=== PATIENT | female | born 1990 | race Hispanic/Latino ===

== ENCOUNTER 2020-04-25 11:44 | Inpatient (IN) | payer OTHER ==
[~2020-04-25] VITALS: Ht 162.6 cm; Wt 76.2 kg
[2020-04-25] MEDS ORDERED: MORPHINE SULFATE INJ 2 MG/ML SYR IV STA (14:58)
[2020-04-25] MEDS ORDERED: SODIUM CHLORIDE 0.9% 1000ML 1,000 ML IV STA (14:58)
[2020-04-25] MEDS ORDERED: ONDANSETRON HCL INJ 2MG/ML 2ML 2 MG/ML VIAL IV STA (14:58)
[2020-04-25 15:42] LABS: BASOPHILS % 0.3 % (0.0-1.0); EOSINOPHILS # (AUTO) 0.1 (0.0-0.4); EOSINOPHILS % 1.5 % (0.0-6.0); HEMATOCRIT 43.4 % (34.2-44.1); LYMPHOCYTES # (AUTO) 1.3 (1.0-3.2); LYMPHOCYTES % 22.5 % (18.0-39.1); MEAN CORPUSCULAR HEMOGLOBIN 28.7 pg (28-32); MEAN CORPUSCULAR HGB CONC 32.3 g/dL (31-35); MEAN CORPUSCULAR VOLUME 88.9 fL (81-99); MONOCYTES # (AUTO) 0.5 (0.2-0.8); MONOCYTES % 8.2 % (4.4-11.3); NEUTROPHILS % 67.3 % (38.7-80.0); PLATELET COUNT 278 x10e3/uL (140-360); RED BLOOD COUNT 4.88 x10e6/uL (3.6-5.1); RED CELL DISTRIBUTION WIDTH 12.3 % (11.7-14.4)
[2020-04-25 16:01] LABS: ALANINE AMINOTRANSFERASE 14 IU/L (0-55); ALBUMIN 4.5 g/dL (3.5-5.0); ALBUMIN/GLOBULIN RATIO 1.3 (0.8-2.0); ALKALINE PHOSPHATASE 84 IU/L (40-150); ANION GAP 14.8 mmol/L (8-16); BLOOD UREA NITROGEN 7 mg/dL (7-26); BUN/CREATININE RATIO 9 (6-25); CALCIUM 9.5 mg/dL (8.4-10.2); CARBON DIOXIDE 29 mmol/L (22-29); CHLORIDE 99 mmol/L (98-107); CREATININE, SERUM 0.74 mg/dL (0.57-1.11); EST GLOMERULAR FILTRATION RATE > 60 ML/MIN (60-); GLUCOSE 98 mg/dL (74-118); POTASSIUM 3.8 mmol/L (3.5-5.1); SODIUM 139 mmol/L (136-145)
[2020-04-25] MEDS ORDERED: ONDANSETRON HCL INJ 2MG/ML 2ML 2 MG/ML VIAL IV PRN (16:45)
[2020-04-25] MEDS: CEFTRIAXONE SOD 1 GM in SODIUM CHLORIDE 0.9% 50ML 50 ML IV SCH (21:35)
[2020-04-25] MEDS: PREDNISONE 20 MG TAB PO SCH (21:35)
[2020-04-25 22:45] VITALS: BP 115/82
[2020-04-25] MEDS: SODIUM CHLORIDE 0.9% 1000ML 1,000 ML IV SCH (22:45)
[2020-04-25] MEDS: ACYCLOVIR SODIUM INJ 800 MG in SODIUM CHLORIDE 0.9% 250ML 250 ML IV SCH (22:45)
[2020-04-25] MEDS ORDERED: PROAIR HFA INH8.5 GM (23:00)
[2020-04-25] MEDS ORDERED: TYLENOL # 31 EA PO (23:00)
[2020-04-25] MEDS ORDERED: ACYCLOVIR800 MG PO (23:00)
[2020-04-26] VITALS (7 sets, daily range): BP systolic 118–128; BP diastolic 76–88
[2020-04-26] MEDS ORDERED: ACETAMIN/BUTALBITAL/CAFFEINE TAB PO PRN
[2020-04-26] MEDS ORDERED: POLYETHYLENE GLYCOL 3350 17 GM PACK PO PRN
[2020-04-26] MEDS ORDERED: TEMAZEPAM 15 MG CAP PO PRN
[2020-04-26] MEDS ORDERED: ACETAMINOPHEN/CODEINE 300MG - 30MG TAB PO PRN
[2020-04-26] MEDS ORDERED: METOPROLOL TARTRATE INJ 1 MG/ML VIAL IV PRN
[2020-04-26] MEDS ORDERED: ACETAMINOPHEN 325 MG TAB PO PRN
[2020-04-26] MEDS ORDERED: ALBUTEROL SULFATE HFA 8GM INHALATION AEROSOL INH PRN
[2020-04-26] MEDS: VANCOMYCIN 1GM/NS 250 ML 250 ML IV SCH ×4 (01:45→16:00)
[2020-04-26] MEDS: ACYCLOVIR SODIUM INJ 800 MG in SODIUM CHLORIDE 0.9% 250ML 250 ML IV SCH ×3 (02:35→17:56)
[2020-04-26] MEDS: MORPHINE SULFATE INJ 2 MG/ML SYR IV PRN ×2 (02:50→18:47)
[2020-04-26] MEDS: SODIUM CHLORIDE 0.9% 1000ML 1,000 ML IV SCH ×3 (02:51→23:42)
[2020-04-26] MEDS ORDERED: CEFTRIAXONE SOD 1 GM VIAL ONE ×2 (03:21→15:50)
[2020-04-26] MEDS ORDERED: SODIUM CHLORIDE 0.9% 50ML 50 ML ONE ×2 (03:22→16:01)
[2020-04-26] MEDS: CEFTRIAXONE SOD 1 GM in SODIUM CHLORIDE 0.9% 50ML 50 ML IV SCH ×2 (05:22→16:28)
[2020-04-26 06:20] LABS: BASOPHILS % 0.1 % (0.0-1.0); HEMOGLOBIN 12.8 g/dL (12.0-16.0); LYMPHOCYTES # (AUTO) 0.8 (1.0-3.2); LYMPHOCYTES % 12.3 % (18.0-39.1); MEAN CORPUSCULAR HEMOGLOBIN 28.9 pg (28-32); MEAN CORPUSCULAR HGB CONC 32.8 g/dL (31-35); MONOCYTES # (AUTO) 0.2 (0.2-0.8); MONOCYTES % 2.2 % (4.4-11.3); NEUTROPHILS # (AUTO) 5.8 (2.1-6.9); PLATELET COUNT 259 x10e3/uL (140-360); RED BLOOD COUNT 4.43 x10e6/uL (3.6-5.1); RED CELL DISTRIBUTION WIDTH 12.2 % (11.7-14.4)
[2020-04-26 06:51] LABS: ALANINE AMINOTRANSFERASE 12 IU/L (0-55); ALBUMIN 3.7 g/dL (3.5-5.0); ALBUMIN/GLOBULIN RATIO 1.2 (0.8-2.0); ALKALINE PHOSPHATASE 91 IU/L (40-150); ANION GAP 10.1 mmol/L (8-16); BLOOD UREA NITROGEN 7 mg/dL (7-26); BUN/CREATININE RATIO 11 (6-25); CALCIUM 8.8 mg/dL (8.4-10.2); CARBON DIOXIDE 27 mmol/L (22-29); CHLORIDE 104 mmol/L (98-107); CREATININE, SERUM 0.66 mg/dL (0.57-1.11); EST GLOMERULAR FILTRATION RATE > 60 ML/MIN (60-); GLUCOSE 147 mg/dL (74-118); POTASSIUM 4.1 mmol/L (3.5-5.1); SODIUM 137 mmol/L (136-145)
[2020-04-26 07:12] LABS: MAGNESIUM 1.7 MG/DL (1.3-2.1); PHOSPHORUS 2.3 MG/DL (2.3-4.7)
[2020-04-26 07:32] LABS: THYROID STIMULATING HORMONE 0.167 uIU/mL (0.350-4.940)
[2020-04-26] MEDS: DOCUSATE SODIUM 100 MG CAP PO SCH ×2 (08:10→16:28)
[2020-04-26] MEDS: PREDNISONE 20 MG TAB PO SCH (08:10)
[2020-04-26] MEDS: FAMOTIDINE 20 MG/2 ML VIAL IV SCH ×2 (08:10→16:28)
[2020-04-26] MEDS: METOPROLOL SUCCINATE 25 MG TAB XL PO SCH (11:20)
[2020-04-26 12:41] LABS: HIV 1&2 AB SCREEN NON-REACTIVE (NONREACTIVE)
[2020-04-26 12:46] LABS: FREE T4 (FREE THYROXINE) 0.97 ng/dL (0.8-1.8)
[2020-04-26] MEDS: TRIFLURIDINE(OPTH) 1 % 7.5ML BOTTLE OP SCH (21:00)
[2020-04-27 00:59] VITALS: BP 123/76
[2020-04-27] MEDS: ACYCLOVIR SODIUM INJ 800 MG in SODIUM CHLORIDE 0.9% 250ML 250 ML IV SCH ×2 (02:40→12:18)
[2020-04-27] MEDS ORDERED: CEFTRIAXONE SOD 1 GM VIAL ONE (02:55)
[2020-04-27] MEDS: CEFTRIAXONE SOD 1 GM in SODIUM CHLORIDE 0.9% 50ML 50 ML IV SCH (03:48)
[2020-04-27] MEDS: TRIFLURIDINE(OPTH) 1 % 7.5ML BOTTLE OP SCH ×3 (05:00→13:00)
[2020-04-27] MEDS: VANCOMYCIN 1GM/NS 250 ML 250 ML IV SCH (05:00)
[2020-04-27 05:25] VITALS: BP 121/84
[2020-04-27 08:00] VITALS: BP 122/90
[2020-04-27 08:02] VITALS: BP 122/90
[2020-04-27] MEDS: FAMOTIDINE 20 MG/2 ML VIAL IV SCH (09:23)
[2020-04-27] MEDS: METOPROLOL SUCCINATE 25 MG TAB XL PO SCH (09:23)
[2020-04-27] MEDS: PREDNISONE 20 MG TAB PO SCH (09:23)
[2020-04-27] MEDS: DOCUSATE SODIUM 100 MG CAP PO SCH (09:23)
[2020-04-27] MEDS: SODIUM CHLORIDE 0.9% 1000ML 1,000 ML IV SCH (09:35)
[2020-04-27 12:00] VITALS: BP 132/81
[2020-04-27] MEDS ORDERED: ACYCLOVIR800 MG PO (14:50)
[2020-04-27] MEDS ORDERED: CLINDAMYCIN HC150 MG PO (14:50)
[2020-04-27] MEDS ORDERED: Acetamin/Butalbital/Caffeine PO (14:53)
[2020-04-27] MEDS ORDERED: PREDNISONE20 MG PO (14:53)
[2020-04-27] MEDS ORDERED: TRIFLURIDINE7.5 ML OP (14:53)
[2020-04-27] MEDS ORDERED: ACETAMINOPHEN325 M1 PO (14:53)
[2020-04-27 15:55] VITALS: BP 115/74
== END 2020-04-27 16:30 | disposition home or self-care (01) | DRG 125 ==
LOC: ER 14:25 → ERHOLD 16:43 → MED/SURG3 21:57
PROVIDERS: ADMIT Internal Medicine; ATTEND Internal Medicine
DX: B02.30 Zoster ocular disease, unspecified (principal); H44.001 Unspecified purulent endophthalmitis, right eye; J45.909 Unspecified asthma, uncomplicated; F41.9 Anxiety disorder, unspecified; R00.0 Tachycardia, unspecified; R51.9 Headache, unspecified; Z88.0 Allergy status to penicillin; R59.0 Localized enlarged lymph nodes; R94.6 Abnormal results of thyroid function studies; Z20.822 Contact with and (suspected) exposure to COVID-19
CPT/HCPCS: 36415; 80053; 83735; 84100; 84439; 84443; 84479; 84480; 84481; 85025; 87040; 87390; 99284; G0433; G0435; J0696; J2270; J2405; J3370; J7030; J7050; J7512; U0002

== ENCOUNTER 2020-12-24 12:35 | Emergency (ER) | payer OTHER ==
[~2020-12-24] VITALS: Ht 162.6 cm; Wt 70.8 kg
[~2020-12-24 12:35] MED LIST: ACETAMINOPHEN325 M1 PO; ACYCLOVIR800 MG PO; Acetamin/Butalbital/Caffeine PO; CLINDAMYCIN HC150 MG PO; PREDNISONE20 MG PO; PROAIR HFA INH8.5 GM; TRIFLURIDINE7.5 ML OP; TYLENOL # 31 EA PO
[2020-12-24] MEDS ORDERED: SODIUM CHLORIDE 0.9% 1000ML 1,000 ML IV STA (12:59)
[2020-12-24] MEDS ORDERED: ONDANSETRON HCL INJ 2MG/ML 2ML 2 MG/ML VIAL IV NR (13:00)
[2020-12-24] MEDS ORDERED: DICYCLOMINE HCL 20 MG/2 ML VIAL IM ONE (13:15)
[2020-12-24 13:17] LABS: BASOPHILS % 0.5 % (0.0-1.0); EOSINOPHILS # (AUTO) 0.1 (0.0-0.4); EOSINOPHILS % 2.1 % (0.0-6.0); HEMATOCRIT 42.2 % (34.2-44.1); HEMOGLOBIN 13.9 g/dL (12.0-16.0); LYMPHOCYTES # (AUTO) 1.5 (1.0-3.2); LYMPHOCYTES % 34.6 % (18.0-39.1); MEAN CORPUSCULAR HEMOGLOBIN 28.2 pg (28-32); MEAN CORPUSCULAR HGB CONC 32.9 g/dL (31-35); MEAN CORPUSCULAR VOLUME 85.6 fL (81-99); MONOCYTES # (AUTO) 0.4 (0.2-0.8); MONOCYTES % 9.1 % (4.4-11.3); NEUTROPHILS # (AUTO) 2.3 (2.1-6.9); NEUTROPHILS % 53.5 % (38.7-80.0); PLATELET COUNT 248 x10e3/uL (140-360); RED BLOOD COUNT 4.93 x10e6/uL (3.6-5.1); RED CELL DISTRIBUTION WIDTH 13.2 % (11.7-14.4)
[2020-12-24 13:31] LABS: CLARITY,URINE CLEAR (CLEAR); COLOR,URINE YELLOW (YELLOW)
[2020-12-24 13:32] LABS: KETONES,URINE >=160 (NEGATIVE); LEUKOCYTE ESTERASE ,URINE TRACE (NEGATIVE); NITRITE,URINE NEGATIVE (NEGATIVE); PROTEIN,URINE DIPSTICK TRACE (NEGATIVE); URINE UROBILINOGEN 0.2 mg/dL (0.2 - 1)
[2020-12-24 13:33] LABS: BACTERIA,URINE RARE /HPF; EPITHELIAL CELLS,URINE FEW /LPF
[2020-12-24 13:39] LABS: ALANINE AMINOTRANSFERASE 14 IU/L (0-55); ALBUMIN 4.2 g/dL (3.5-5.0); ALBUMIN/GLOBULIN RATIO 1.2 (0.8-2.0); ALKALINE PHOSPHATASE 66 IU/L (40-150); AMYLASE 80 U/L (25-125); ANION GAP 14.4 mmol/L (8-16); BLOOD UREA NITROGEN 8 mg/dL (7-26); BUN/CREATININE RATIO 11 (6-25); CALCIUM 8.7 mg/dL (8.4-10.2); CARBON DIOXIDE 21 mmol/L (22-29); CHLORIDE 103 mmol/L (98-107); CREATININE, SERUM 0.72 mg/dL (0.57-1.11); EST GLOMERULAR FILTRATION RATE 96 ML/MIN (60-); GLUCOSE 88 mg/dL (74-118); LIPASE 64 U/L (8-78); POTASSIUM 3.4 mmol/L (3.5-5.1); SODIUM 135 mmol/L (136-145)
== END 2020-12-24 16:26 | disposition home or self-care (01) ==
LOC: ER 12:48
DX: R10.13 Epigastric pain (principal); N39.0 Urinary tract infection, site not specified; R19.7 Diarrhea, unspecified; N80.9 Endometriosis, unspecified
CPT/HCPCS: 36415; 76705; 80053; 81001; 81025; 82150; 83690; 84702; 85025; 99284; C9113; J0500; J2405; J7030